=== PATIENT | female | born 1995 | race Caucasian/White ===

== ENCOUNTER 2018-06-12 19:11 | Emergency (ER) | payer SELFPAY ==
[~2018-06-12] VITALS: Ht 170.2 cm; Wt 52.2 kg
[2018-06-12 19:40] VITALS: BP 114/69
[2018-06-12] MEDS: ONDANSETRON ODT 4 MG TAB PO ONE (21:42)
[2018-06-12] MEDS: FAMOTIDINE 20 MG TAB PO ONE (21:42)
[2018-06-12] MEDS: diphenhdrAMINE HCL 25 MG CAP PO ONE (21:42)
[2018-06-12] MEDS: predniSONE 20 MG TAB PO ONE (21:48)
== END 2018-06-12 22:02 | disposition home or self-care (01) ==
LOC: ER 19:17 → EDBD 19:17 → ER 21:56
DX: L25.9 Unspecified contact dermatitis, unspecified cause (principal)
CPT/HCPCS: 99284; J7512; Q0162